=== PATIENT | male | born 1985 | race Caucasian/White ===

== ENCOUNTER 2017-07-03 22:55 | Emergency (ER) | payer SELFPAY ==
[2017-07-03] MEDS ORDERED: Ketorolac 30 MG/ML SDV IVPUSH ONE (23:46)
[2017-07-03] MEDS ORDERED: Sodium Chloride 0.9% 1,000 ML IV ONE (23:48)
--- NOTE | 2017-07-03 23:49 | EDM.PDOC ---
ED HPI GENERAL MEDICAL PROBLEM - General Chief Complaint: Abdominal Pain Stated Complaint: VOMITING BLOOD/ABDOMINAL PAIN Time Seen by Provider: 07/03/17 23:22 Source of Information: Reports: Patient History Limitations: Reports: No Limitations - History of Present Illness INITIAL COMMENTS - FREE TEXT/NARRATIVE: HISTORY AND PHYSICAL: History of present illness: [32-year-old male with a prior history of midline ventral hernia which was repaired surgically now presents emergency department complaining of abdominal pain. Patient states she's had intermittent abdominal pain for 2 weeks Today he had some nausea and vomitingand his pain returned tonight so he came to the emergency department. He has normal bowel and bladder habits. Pain is not worse with movement. No fevers chills sweats or shaking chills. Patient has no chest pain or shortness of breath. Denies productive cough. He has no history of chronic abdominal problems and has not been evaluated over the last 2 weeks since he evolved this pain. Review of systems: As per history of present illness and below otherwise all systems reviewed and negative. Past medical history: As per history of present illness and as reviewed below otherwise noncontributory. Surgical history: As per history of present illness and as reviewed below otherwise noncontributory. Social history: No reported history of drug or alcohol abuse. Family history: As per history of present illness and as reviewed below otherwise noncontributory. Physical exam: HEENT: Atraumatic, normocephalic, pupils reactive, negative for conjunctival pallor or scleral icterus, mucous membranes moist, throat clear, neck supple, nontender, trachea midline. Lungs: Clear to auscultation, breath sounds equal bilaterally, chest nontender. Heart: S1S2, regular, negative for clicks, rubs, or JVD. Abdomen: Soft, nondistended, right-sided tenderness without guarding or rebound.. Negative for masses or hepatosplenomegaly. Negative for costovertebral tenderness. Pelvis: Stable nontender. Genitourinary: Deferred. Rectal: Deferred. Extremities: Atraumatic, negative for cords or calf pain. Neurovascular unremarkable. Neuro: Awake, alert, oriented. Cranial nerves grossly unremarkable. Cerebellum unremarkable. Motor and sensory unremarkable throughout. Exam nonfocal. Diagnostics: [CT abdomen and pelvis pending full laboratory workup pending] Therapeutics: [IV fluids, Toradol administered] Impression: [] Plan: [patient with abdominal pain for 2 weeks worsening tonight. Full workup pending including labs and CT. Patient clinically stable with no evidence of acute abdomen] Patient sleeping on reevaluation. Ambulates in what appears to be complete comfort while going to the bathroom to give a urine sample. White blood cell count elevated however CT is benign. He has no active vomiting or abdominal pain on reevaluation prior to discharge. Urinalysis negative. No further workup or treatment indicated. Other than nausea and vomiting 1 today patient has had intermittent symptoms which are unchanged for 2 weeks. We'll prescribe Zofran and he is aware to follow-up with his primary care for reevaluation of leukocytosis further workup and treatment as needed. He agrees with outpatient follow-up and strict return precautions given Definitive disposition and diagnosis as appropriate pending reevaluation and review of above. Middle Abdominal Pain Score (Numeric/FACES): 7 Right Groin Pain Score (Numeric/FACES): 4 - Related Data Allergies Allergy/AdvReac Type Severity Reaction Status Date / Time z pack AdvReac ear problem Uncoded 07/03/17 23:18 Home Meds: Home Meds Divalproex Sodium [Depakote] 500 mg PO BID 07/03/17 [History] [place] Carbonate [[place] Carbonate ER] 07/03/17 [History] Ondansetron [Zofran ODT] 4 mg SL Q4H PRN #10 tab.dis 07/04/17 [Rx] Past Medical History Psychiatric History: Reports: Bipolar Dermatologic History: Reports: Other (See Below) Other Dermatologic History: pilonidal cyst - Infectious Disease History Infectious Disease History: Reports: Chicken Pox - Past Surgical History GI Surgical History: Reports: Hernia Repair/Other Social & Family History - Tobacco Use Smoking Status *Q: Current Every Day Smoker Years of Tobacco use: 16 Packs/Tins Daily: 3 ED ROS GENERAL - Review of Systems Review Of Systems: See Below (history of present illness) ED EXAM, GI/ABD - Physical Exam Exam: See Below (history of present illness) Course - Vital Signs Last Recorded V/S: Last Vital Signs Temp 36.6 C 07/04/17 02:38 Pulse 74 07/04/17 02:38 Resp 12 07/04/17 02:38 BP 116/59 L 07/04/17 02:38 Pulse Ox 95 07/04/17 02:38 - Orders/Labs/Meds Orders: Active Orders 24 hr Category Date Time Status Abdomen Pelvis w Cont [CT] Stat Exams 07/03/17 23:46 Taken Labs: Laboratory Tests 07/03/17 07/03/17 07/04/17 Range/Units 23:25 23:25 01:45 WBC 12.75 H (4.0-11.0) K/uL RBC 5.40 (4.50-5.90) M/uL Hgb 16.9 (13.0-17.0) g/dL Hct 46.6 (38.0-50.0) % MCV 86.3 (80.0-98.0) fL MCH 31.3 (27.0-32.0) pg MCHC 36.3 (31.0-37.0) g/dL RDW Std Deviation 38.0 (28.0-62.0) fl RDW Coeff of Kimmy 12 (11.0-15.0) % Plt Count 204 (150-400) K/uL MPV 9.90 (7.40-12.00) fL Neut % (Auto) 69.7 (48.0-80.0) % Lymph % (Auto) 26.0 (16.0-40.0) % [place] % (Auto) 3.3 (0.0-15.0) % Eos % (Auto) 0.8 (0.0-7.0) % Baso % (Auto) 0.2 (0.0-1.5) % Neut # (Auto) 8.9 H (1.4-5.7) K/uL Lymph # (Auto) 3.3 H (0.6-2.4) K/uL [place] # (Auto) 0.4 (0.0-0.8) K/uL Eos # (Auto) 0.1 (0.0-0.7) K/uL Baso # (Auto) 0.0 (0.0-0.1) K/uL Nucleated RBC % 0.0 /100WBC Nucleated RBCs # 0 K/uL Sodium 139 (136-146) mmol/L Potassium 3.8 (3.5-5.1) mmol/L Chloride 104 (98-110) mmol/L Carbon Dioxide 24 (21-31) mmol/L BUN 12 (6.0-23.0) mg/dL Creatinine 1.1 (0.6-1.5) mg/dL Est Cr Clr Drug Dosing 102.68 mL/min Estimated GFR (MDRD) > 60.0 ml/min Glucose 141 H (60-110) mg/dL Calcium 9.5 (8.8-10.8) mg/dL Total Bilirubin 0.6 (0.1-1.5) mg/dL AST 23 (5-40) IU/L ALT 31 (8-54) IU/L Alkaline Phosphatase 75 (40-150) Total Protein 7.6 (6.0-8.0) g/dL Albumin 4.1 (3.5-5.0) g/dL Globulin 3.5 (2.0-3.5) g/dL Albumin/Globulin Ratio 1.2 L (1.3-2.8) Lipase 39 (7-80) U/L Urine Color YELLOW Urine Appearance CLEAR Urine pH 6.5 (5.0-8.0) Ur Specific [place] 1.010 (1.001-1.035) Urine Protein NEGATIVE (NEGATIVE) mg/dL Urine Glucose (UA) NEGATIVE (NEGATIVE) mg/dL Urine Ketones NEGATIVE (NEGATIVE) mg/dL Urine Occult Blood NEGATIVE (NEGATIVE) Urine Nitrite NEGATIVE (NEGATIVE) Urine Bilirubin NEGATIVE (NEGATIVE) Urine Urobilinogen 0.2 (<2.0) EU/dL Ur Leukocyte Esterase NEGATIVE (NEGATIVE) Urine RBC 0-1 (0-2/HPF) Urine WBC 0-1 (0-5/HPF) Ur Epithelial Cells RARE (NONE-FEW) Urine Bacteria RARE (NEGATIVE) Meds: Medications Discontinued Medications Generic Name Dose Route Start Last Admin Trade Name Freq PRN Reason Stop Dose Admin Sodium Chloride 1,000 mls @ 999 mls/hr 07/03/17 23:48 07/03/17 23:58 Normal Saline IV 07/04/17 00:48 999 mls/hr STAT ONE Administration Iopamidol 100 ml 07/04/17 02:04 07/04/17 02:05 Isovue Multipack-370 (76%) IVPUSH 07/04/17 02:05 100 ml ONETIME STA Administration Ketorolac Tromethamine 30 mg 07/03/17 23:46 07/03/17 23:58 Toradol IVPUSH 07/03/17 23:47 30 mg ONETIME ONE Administration Departure - Departure Time of Disposition: 02:16 Disposition: Home, Self-Care 01 Condition: Good Clinical Impression: Abdominal pain, Vomiting, Leukocytosis - Discharge Information Prescriptions: Ondansetron [Zofran ODT] 4 mg SL Q4H PRN #10 tab.dis PRN Reason: Nausea Instructions: Nausea and Vomiting, Adult, [id number], Abdominal Pain, Adult, [id number] Referrals: PCP,None [Primary Care Provider] - Forms: ED Department Discharge Additional Instructions: not clear what has caused your nausea and vomiting today or your intermittent crampy abdominal pain over the last 2 weeks. Her labs show a mildly elevated white blood cell count at 12.7 but are otherwise unremarkable including negative CBC CMP and urinalysis. Your CAT scan was negative which means it showed no acute abnormality or emergency that requires further care in the emergency department.Use Zofran under your tongue every 4 hours as needed for nausea Rest and drink plenty of fluids. Follow-up with your tomorrow and return immediately for new severe or worsening symptoms - My Orders Last 24 Hours: My Active Orders 07/03/17 23:46 Abdomen Pelvis w Cont [CT] Stat - Assessment/Plan Last 24 Hours: My Active Orders 07/03/17 23:46 Abdomen Pelvis w Cont [CT] Stat
[2017-07-04 00:02] LABS: CHLORIDE,CL 104 mmol/L (98-110); SODIUM,NA 139 mmol/L (136-146)
[2017-07-04] MEDS ORDERED: Iopamidol 755 MG/ML 500 ML Multipack Bottle IVPUSH STA (02:04)
--- NOTE | 2017-07-04 10:50 | CT ---
EXAM DATE: 07/03/17 PATIENT'S AGE: 32 Patient: DARREL WALLER Facility: [place], [place] Site . Site : 1985 Study: CT Abdomen/Pelvis [id number] 1:07:38 AM Ordering Physician: Christian Mari Final Report: INDICATION: Mid abdominal pain x1 month. Vomiting blood x1 today. TECHNIQUE: CT abdomen and pelvis acquired with IV contrast. COMPARISON: None. FINDINGS: Lower chest: Lung bases are clear. No pleural or pericardial effusions. Liver: Unremarkable. Spleen: Unremarkable. Pancreas: Unremarkable. Gallbladder and bile ducts: Unremarkable. Kidneys: Unremarkable. Adrenal glands: Unremarkable. GI tract: No evidence of obstruction or acute appendicitis. No inflammatory changes elsewhere. No free air or free fluid. Vascular structures: Unremarkable. Lymph nodes: Unremarkable. Pelvic Organs: Unremarkable. Bones: No acute abnormality. IMPRESSION: No acute intra-abdominal or pelvic abnormality. Dictated by Kai Patton MD @ 07/04/2017 1:22:10 AM Dictated by: Kai Patton MD @ 07/04/2017 01:26:09 (Electronic Signature) Report Signed by Proxy. [facility]
== END 2017-07-04 02:30 | disposition home or self-care (01) ==
LOC: MW.ED 22:55
DX: R10.9 Unspecified abdominal pain (principal); D72.829 Elevated white blood cell count, unspecified; R11.2 Nausea with vomiting, unspecified; F17.210 Nicotine dependence, cigarettes, uncomplicated
CPT/HCPCS: 36415; 74177; 80053; 81001; 83690; 85025; J1885; J7040; Q9967; 96361; 96374; 99283; 99284-25

== ENCOUNTER 2017-09-05 22:52 | Emergency (ER) | payer OTHER ==
--- NOTE | 2017-09-05 22:58 | EDM.PDOC ---
ED HPI GENERAL MEDICAL PROBLEM - General Chief Complaint: Abdominal Pain Stated Complaint: BLOOD IN STOOL Time Seen by Provider: 09/05/17 22:56 - History of Present Illness INITIAL COMMENTS - FREE TEXT/NARRATIVE: HISTORY AND PHYSICAL: History of present illness: The patient is a 32-year-old male was only significant past medical history is of bipolar disorder which he says is currently stable and who does not live here but lives in [place] where he has a provider and who presents tonight with history of diffuse mid abdominal pain that started after he woke this morning and has been continuous all day. He has not had a fever chills cough runny nose or sore throat and has not had any vomiting. Patient usually has 1 bowel movement per day and is not been black or bloody recently but this evening he had a small stool which was bright red blood in character and it was discomforting with some discomfort at his anus when he passed it. He says it was not hard and he did not push. He is not lightheaded or dizzy and when this episode happened he contacted his provider back in [place] who told him it was likely stress related. The patient does work here locally and does drink a lot of caffeinated products and eat on the go and admits he does not have a very healthy diet. He says that he drinks beer occasionally on the weekends and earlier tonight he did take ibuprofen for the pain. He is passing his urine okay and has not had any blood in his urine or bleeding gums. The patient states he ate a [employer] sandwich for dinner which is not unusual for him and he has not had any recent exotic travel. He does tell me that everybody at work has illnesses. Please note that the patient was here in our emergency department on July 03 of this year with complaints of 2 weeks of abdominal pain with one episode of vomiting blood. At that time he had labs and a CAT scan of the abdomen and pelvis all of which was normal and he was referred back to our clinic. Please note that the patient did tell nursing and myself that the medications that he lists in his profile for his bipolar he self stopped about 2 weeks ago because he does not like the way that they make him feel. He has not had a dialogue with his provider back: [place] about this but he is not exhibiting any signs of distress here with respect to that. Review of systems: As per history of present illness and below otherwise all systems reviewed and negative. Past medical history: As per history of present illness and as reviewed below otherwise noncontributory. Surgical history: As per history of present illness and as reviewed below otherwise noncontributory. Social history: No reported history of drug or alcohol abuse. Family history: As per history of present illness and as reviewed below otherwise noncontributory. Physical exam: Gen.: Vital signs of been reviewed by me. Well-developed well-nourished man who is overweight and nontoxic and moves easily in the ED without distress HEENT: Atraumatic, normocephalic, pupils reactive, negative for conjunctival pallor or scleral icterus, mucous membranes tacky, throat clear, neck supple, nontender, trachea midline. Lungs: Clear to auscultation, breath sounds equal bilaterally, chest nontender. Heart: S1S2, regular, negative for clicks, rubs, or JVD. Abdomen: Soft, nondistended, nontender. There is slight tympany on percussion of the upper abdomen and the bowel sounds are slightly hypoactive. There is no rebound guarding or tenderness on deep palpation throughout the abdomen but the patient indicates a bandlike area at mid abdomen as the site of his discomfort. Negative for masses or hepatosplenomegaly. Pelvis: Stable nontender. Genitourinary: Deferred. Rectal: Normal tone no evidence of any external or internal masses were appreciated but the patient did not tolerated the exam well. There was scant light brown stool in the vault which is Hemoccult negative. Extremities: Atraumatic, negative for cords or calf pain. Neurovascular unremarkable. Neuro: Awake, alert, oriented. Cranial nerves II through XII unremarkable. Cerebellum unremarkable. Motor and sensory unremarkable throughout. Exam nonfocal. Diagnostics: Orthostatic vitals CBC CMP INR Therapeutics: [] I discussed with the patient that if the symptoms continue he would need to pursue colonoscopy and that he should continue to monitor his bowel movements as well as adjust his diet and hydration appropriately. I will send him home on some Bentyl to help with pain and cramping referrals to our clinic. Impression: Abdominal pain with episode of rectal bleeding stable Definitive disposition and diagnosis as appropriate pending reevaluation and review of above. abdominal pain Pain Score (Numeric/FACES): 2 - Related Data Allergies Allergy/AdvReac Type Severity Reaction Status Date / Time z pack AdvReac ear problem Uncoded 12/14/17 23:02 Home Meds: Home Meds Divalproex Sodium [Depakote] 500 mg PO BID 07/03/17 [History] [place] Carbonate [[place] Carbonate ER] 1 tab PO BID 07/03/17 [History] Past Medical History Psychiatric History: Reports: Bipolar Dermatologic History: Reports: Other (See Below) Other Dermatologic History: pilonidal cyst - Infectious Disease History Infectious Disease History: Reports: Chicken Pox - Past Surgical History GI Surgical History: Reports: Hernia Repair/Other Social & Family History - Tobacco Use Smoking Status *Q: Current Every Day Smoker Years of Tobacco use: 16 Packs/Tins Daily: 3 ED ROS GENERAL - Review of Systems Review Of Systems: ROS reveals no pertinent complaints other than HPI. ED EXAM, GENERAL - Physical Exam Exam: See Below (See dictation) Course - Vital Signs Last Recorded V/S: Last Vital Signs Temp 36.7 C 09/05/17 23:03 Pulse 96 09/05/17 23:03 Resp 18 09/05/17 23:03 BP 131/85 09/05/17 23:03 Pulse Ox 96 09/05/17 23:03 Orthostatic Blood Pressure [ 145/101 Standing] Orthostatic Blood Pressure [ 156/93 Sitting] Orthostatic Blood Pressure [ 140/91 Supine] - Orders/Labs/Meds Orders: Active Orders 24 hr Category Date Time Status Communication Order [RC] STAT Care 09/05/17 22:58 Active Fecal Occult Blood Collection [RC] ASDIRECTED Care 09/05/17 23:37 Inactive Fecal Occult Blood Collection [RC] ASDIRECTED Care 09/05/17 23:39 Inactive Orthostatic Vital Signs [RC] ASDIRECTED Care 09/05/17 23:17 Active Labs: Laboratory Tests 09/05/17 09/05/17 09/05/17 Range/Units 23:30 23:30 23:30 WBC 11.70 H (4.0-11.0) K/uL RBC 5.29 (4.50-5.90) M/uL Hgb 16.9 (13.0-17.0) g/dL Hct 46.6 (38.0-50.0) % MCV 88.1 (80.0-98.0) fL MCH 31.9 (27.0-32.0) pg MCHC 36.3 (31.0-37.0) g/dL RDW Std Deviation 41.6 (28.0-62.0) fl RDW Coeff of Kimmy 13 (11.0-15.0) % Plt Count 221 (150-400) K/uL MPV 9.90 (7.40-12.00) fL Add Manual Diff YES Neutrophils % (Manual) 58 (48.0-80.0) % Lymphocytes % (Manual) 39 (16.0-40.0) % Monocytes % (Manual) 2 (0.0-15.0) % Eosinophils % (Manual) 1 (0.0-7.0) % Nucleated RBC % 0.0 /100WBC Absolute Seg Neuts 6.8 H (1.4-5.7) Lymphocytes # (Manual) 4.6 H (0.6-2.4) Monocytes # (Manual) 0.2 (0.0-0.8) Eosinophils # (Manual) 0.1 (0.0-0.7) Nucleated RBCs # 0 K/uL INR 0.98 (0.86-1.11) Sodium 141 (136-146) mmol/L Potassium 4.0 (3.5-5.1) mmol/L Chloride 105 (98-110) mmol/L Carbon Dioxide 27 (21-31) mmol/L BUN 13 (6.0-23.0) mg/dL Creatinine 1.1 (0.6-1.5) mg/dL Est Cr Clr Drug Dosing 102.68 mL/min Estimated GFR (MDRD) > 60.0 ml/min Glucose 90 (60-110) mg/dL Calcium 9.5 (8.8-10.8) mg/dL Total Bilirubin 0.5 (0.1-1.5) mg/dL AST 22 (5-40) IU/L ALT 36 (8-54) IU/L Alkaline Phosphatase 78 (40-150) Total Protein 7.5 (6.0-8.0) g/dL Albumin 4.3 (3.5-5.0) g/dL Globulin 3.2 (2.0-3.5) g/dL Albumin/Globulin Ratio 1.3 (1.3-2.8) Meds: Medications Discontinued Medications Generic Name Dose Route Start Last Admin Trade Name Freq PRN Reason Stop Dose Admin Sodium Chloride 10 ml 09/05/17 23:17 Saline Flush FLUSH ASDIRECTED PRN Keep Vein Open Sodium Chloride 2.5 ml 09/05/17 23:17 Saline Flush FLUSH ASDIRECTED PRN Keep Vein Open Departure - Departure Time of Disposition: 00:05 Disposition: Home, Self-Care 01 Condition: Good Clinical Impression: Rectal bleeding Abdominal pain Qualifiers: Abdominal location: generalized Qualified Code(s): R10.84 - Generalized abdominal pain - Discharge Information Referrals: PCP,None [Primary Care Provider] - Forms: ED Department Discharge Additional Instructions: The following information is given to patients seen in the emergency department who are being discharged to home. This information is to outline your options for follow-up care. We provide all patients seen in our emergency department with a follow-up referral. The need for follow-up, as well as the timing and circumstances, are variable depending upon the specifics of your emergency department visit. If you don't have a primary care physician on staff, we will provide you with a referral. We always advise you to contact your personal physician following an emergency department visit to inform them of the circumstance of the visit and for follow-up with them and/or the need for any referrals to a consulting specialist. The emergency department will also refer you to a specialist when appropriate. This referral assures that you have the opportunity for followup care with a specialist. All of these measure are taken in an effort to provide you with optimal care, which includes your followup. Under all circumstances we always encourage you to contact your private physician who remains a resource for coordinating your care. When calling for followup care, please make the office aware that this follow-up is from your recent emergency room visit. If for any reason you are refused follow-up, please contact the [facility] emergency department at and ask to speak to the emergency department charge nurse. [facility] Primary care- Internal Medicine and Family [facility] [address] [place] [address] [id number] [facility] Specialty Care-General Surgery Professional Building [address] [place] [id number] Please try to push hydration and avoid caffeinated products and alcohol. Please call and schedule an appointment with one of our clinic providers or discuss these symptoms with your provider when you go home to [place]. He may also call and connect with one of our surgeons to pursue colonoscopy as we discussed. Return to ER as needed and as discussed. Continue to monitor the symptoms and use the dicyclomine that you're prescribed via [facility] for cramping and abdominal discomfort. - My Orders Last 24 Hours: My Active Orders 09/05/17 22:58 Communication Order [RC] STAT 09/05/17 23:17 Orthostatic Vital Signs [RC] ASDIRECTED 09/05/17 23:37 Fecal Occult Blood Collection [RC] ASDIRECTED 09/05/17 23:39 Fecal Occult Blood Collection [RC] ASDIRECTED - Assessment/Plan Last 24 Hours: My Active Orders 09/05/17 22:58 Communication Order [RC] STAT 09/05/17 23:17 Orthostatic Vital Signs [RC] ASDIRECTED 09/05/17 23:37 Fecal Occult Blood Collection [RC] ASDIRECTED 09/05/17 23:39 Fecal Occult Blood Collection [RC] ASDIRECTED
[2017-09-05] MEDS ORDERED: Sodium Chloride 0.9% 10 ML Syringe FLUSH PRN (23:17)
[2017-09-05] MEDS ORDERED: Sodium Chloride 0.9% 2.5 ML Syringe FLUSH PRN (23:17)
[2017-09-05 23:56] LABS: CHLORIDE,CL 105 mmol/L (98-110); SODIUM,NA 141 mmol/L (136-146)
== END 2017-09-06 00:15 | disposition home or self-care (01) ==
LOC: MW.ED 22:52
DX: K62.5 Hemorrhage of anus and rectum (principal); R10.84 Generalized abdominal pain; F17.210 Nicotine dependence, cigarettes, uncomplicated; F31.9 Bipolar disorder, unspecified; Z88.1 Allergy status to other antibiotic agents
CPT/HCPCS: 36415; 80053; 85025; 85610; 99284